=== PATIENT | female | born 1965 | race Caucasian/White ===

== ENCOUNTER 2019-01-01 08:44 | Emergency (ER) | payer BC ==
[2019-01-01 09:22] LABS: EOS % 0.3 % (1.0-5.0); HEMATOCRIT 46.1 % (37.0-47.0); HEMOGLOBIN 15.4 g/dL (12.5-16.0); LYMPH# 2.9 (1.50-4.00); MEAN CELL VOLUME 87 fl (78-100); MEAN CORPUSCULAR HEMOGLOBIN 29 pg (27-31); MEAN CORPUSCULAR HGB CONC 33 g/dL (33-37); MEAN PLATELET VOLUME 11.3 fl (7.4-10.4); MONO # 0.5 (0.20-0.80); PLATELET COUNT 306 K/mm3 (130-400); RED BLOOD COUNT 5.28 M/mm3 (4.10-5.30); RED CELL DISTRIBUTION WIDTH 13.2 % (11.5-14.5); WHITE BLOOD COUNT 7.4 K/mm3 (4.8-10.8)
[2019-01-01 09:26] LABS: ALBUMIN 4.2 g/dL (3.5-5.0); POTASSIUM 3.7 mmol/L (3.5-5.1); SODIUM 141 mmol/L (136-145)
[2019-01-01 09:28] LABS: CALCIUM 9.7 mg/dL (8.3-10.5)
[2019-01-01 09:29] LABS: GLUCOSE 140 mg/dL (65-105); TOTAL PROTEIN 7.3 g/dL (6.4-8.3)
[2019-01-01 09:30] LABS: CARBON DIOXIDE 23 mmol/L (22-29)
[2019-01-01 09:31] LABS: TOTAL BILIRUBIN 0.6 mg/dL (0.2-1.2)
[2019-01-01 09:34] LABS: AST-SGOT 12 U/L (5-34)
[2019-01-01 09:35] LABS: ALT/SGPT 14 U/L (0-55)
[2019-01-01 09:36] LABS: LIPASE 22 U/L (8-78)
[2019-01-01 09:48] LABS: TROPONIN-I < 0.03 ng/mL (<0.030)
[2019-01-01] MEDS ORDERED: PROTONIX20 M1 PO (10:01)
[2019-01-01] MEDS ORDERED: ZOFRAN4 M2 PO (10:01)
[2019-01-01 11:00] VITALS: BP 124/72
== END 2019-01-01 10:52 | disposition home or self-care (01) ==
LOC: ED 08:44
PROVIDERS: Nurse Practitioner Primary Care
DX: K29.00 Acute gastritis without bleeding (principal); Z90.49 Acquired absence of other specified parts of digestive tract; Z90.710 Acquired absence of both cervix and uterus
CPT/HCPCS: C9113; J2405; J7030

== ENCOUNTER → 2021-12-11 | Outpatient (CLI) | payer BC ==
[~2021-12-11] MED LIST: PROTONIX20 M1 PO; ZOFRAN4 M2 PO
== END ==
LOC: RAD 14:37
DX: M25.551 Pain in right hip (principal); M25.552 Pain in left hip; M54.6 Pain in thoracic spine; R10.9 Unspecified abdominal pain

== ENCOUNTER → 2022-01-15 | Outpatient (CLI) | payer BC | LOC: RAD 08:51 | DX: M25.551 Pain in right hip (principal); M25.552 Pain in left hip ==